=== PATIENT | female | born 1995 | race Caucasian/White ===

== ENCOUNTER 2024-02-25 01:35 | Emergency (ER) | payer MEDICAID, OTHER ==
[~2024-02-25] VITALS: Ht 162.6 cm; Wt 61.4 kg
[~2024-02-25 01:35] MED LIST: ACYC-276 PO
[2024-02-25 01:42] VITALS: BP 117/73; PULSE 76; RESP 14; TEMP 97.4; O2SAT 99
[2024-02-25 03:09] VITALS: BP 122/73; PULSE 75; RESP 15; TEMP 97.4; O2SAT 99
== END 2024-02-25 03:09 | disposition home or self-care (01) ==
LOC: MED 01:35
DX: G62.9 Polyneuropathy, unspecified (principal); Z79.899 Other long term (current) drug therapy
CPT/HCPCS: 73130; 99283

== ENCOUNTER 2024-05-07 01:36 | Emergency (ER) | payer MEDICAID ==
[~2024-05-07] VITALS: Ht 162.6 cm; Wt 65.3 kg
[2024-05-07 01:44] VITALS: BP 106/63; PULSE 79; RESP 18; TEMP 98.3; O2SAT 100
[2024-05-07 02:11] VITALS: BP 106/63; PULSE 79; RESP 18; TEMP 98.3; O2SAT 100
== END 2024-05-07 02:11 | disposition home or self-care (01) ==
LOC: MED 01:36
DX: H00.013 Hordeolum externum right eye, unspecified eyelid (principal); Z79.899 Other long term (current) drug therapy
CPT/HCPCS: 99281